=== PATIENT | female | born 1935 | race Two or more races ===

== ENCOUNTER 2018-11-28 16:42 | Inpatient (IN) | payer OTHER, MEDICARE ==
[~2018-11-28] VITALS: Ht 147.3 cm; Wt 43.1 kg
--- NOTE | 2018-11-28 22:30 | NUR ---
BACCARAT DEALERFOREST FIRE MANAGEMENT OFFICER NOTE: PT ADMITTED FROM [facility] ACCOMPANIED BY DAUGHTER. PT IS LETHARGIC BUT AROUSES EASILY TO VERBAL AND TACTILE STIMULI. NO APPARENT DISTRESS NOTED AT THIS TIME. NO FACIAL GRIMACING OR ANY SIGNS OF PAIN NOTED. ON 2LPM NASAL CANNULA, NO SOB NOTED. SATURATING WELL. SINUS RHYTHM HR 73BPM ON TELE MONITOR. PT HAS AN IV ON RIGHT ANTECUBITAL #22 INTACT AND PATENT, FLUSHING WELL. PERTINENT ASSESSMENTS DONE. SKIN ISSUES NOTED, PICTURES TAKEN AND PLACED ON CHART. PER DAUGHTER, SHE WILL BRING THE MEDICATION LIST TOMORROW, SHELDON PHAM, REMY MADE AWARE. KEPT CLEAN, DRY AND COMFORTABLE. SAFETY AND FALL PRECAUTIONS OBSERVED AND MAINTAINED. WILL CONTINUE TO MONITOR PT.
[2018-11-28 23:19] VITALS: BP 148/66
[2018-11-28] MEDS ORDERED: HYDROCODONE/APAP 5/325MG 1 EACH TABLET PO PRN (23:30)
[2018-11-28] MEDS ORDERED: Z GUARD REMEDY 2 OZ OINT TP PRN (23:30)
[2018-11-28] MEDS ORDERED: ZOLPIDEM TARTRATE 5 MG TABLET PO PRN (23:30)
[2018-11-28] MEDS ORDERED: ONDANSETRON HCL/PF 4 MG/2 ML VIAL IVP PRN (23:30)
[2018-11-28] MEDS ORDERED: ACETAMINOPHEN 325 MG TABLET PO PRN (23:30)
[2018-11-28] MEDS ORDERED: MAGNESIUM HYDROXIDE 30 ML UDC PO PRN (23:30)
[2018-11-29] VITALS (21 sets, daily range): BP systolic 102–142; BP diastolic 42–78
[2018-11-29] MEDS: IV NS 0.9% 1,000 ML IV PRN ×2 (00:22→11:05)
[2018-11-29 01:09] LABS: BASOPHILS % (AUTO) 0.5 % (0.0-2.0); EOSINOPHILS % (AUTO) 0.1 % (0.0-6.0); HEMATOCRIT 23 % (33-45); HEMOGLOBIN 7.5 g/dL (11.5-14.8); LYMPHOCYTES # (AUTO) 0.8 /CMM (0.8-4.8); LYMPHOCYTES % (AUTO) 14.6 % (20.0-44.0); MEAN CORPUSCULAR HGB CONC 33 g/dl (31.0-36.0); MEAN CORPUSCULAR VOLUME 103 fL (82-100); MONOCYTES # (AUTO) 0.2 /CMM (0.1-1.30); MONOCYTES % (AUTO) 3.2 % (2.0-12.0); NEUTROPHILS # (AUTO) 4.3 /CMM (1.8-8.9); NEUTROPHILS % (AUTO) 81.6 % (43.0-81.0); RED BLOOD CELL COUNT(AUTO) 2.23 MIL/uL (4.0-5.2); WHITE BLOOD COUNT (AUTO) 5.2 K/uL (4.3-11.0)
[2018-11-29 01:12] LABS: PLATELET COUNT (AUTO) 8 /CMM (150-450)
[2018-11-29 01:31] LABS: LYMPHOCYTES % (MANUAL) 12 % (16-48); MONOCYTES % (MANUAL) 3 % (0-11.0); NEUTROPHILS % (MANUAL) 85 (42-76)
--- NOTE | 2018-11-29 05:20 | NUR ---
FOREST ECOLOGY PROFESSOR NOTE: CALLED LAB TO FOLLOW UP REGARDING PATIENT'S PLATELET ORDER, PER LAB PLATELET STILL NOT AVAILABLE.
--- NOTE | 2018-11-29 06:15 | NUR ---
TAILOR FITTER NOTE: ATTEMPTED IV INSERTION 4X BUT COULDN'T GET A LINE. ENDORSED FROM [place] PT IS REALLY A HARD STICK. SHELDON PHAM NP MADE AWARE AND ORDERED MIDLINE INSERTION.
--- NOTE | 2018-11-29 06:38 | NUR ---
TIRE GROOVER NOTE: NO CHANGES NOTED THROUGHOUT THE SHIFT. 1 BAG OF PLATELET GIVEN WITH NO SIGNS/SYMPTOMS OF ADVERSE REACTION NOTED. PT HAS AN ORDER FOR UA BUT UNABLE TO GET ENOUGH URINE SAMPLE THROUGH STRAIGHT CATH. SHELDON PHAM NOTIFIED. SINUS RHYHTM ON TELE MONITOR HR 85BPM/. KEPT CLEAN, DRY AND COMFORTABLE. SAFETY AND FALL PRECAUTIONS OBSERVED AND MAINTAINED. WILL ENDORSE TO DAY SHIFT RN FOR CONTINUITY OF CARE.
--- NOTE | 2018-11-29 07:20 | NUR ---
SUPERVISOR FUNCTIONAL TESTING NOTES PATIENT IN BED EYES CLOSED, EASY TO AROUSE,RESPOND TO VERBAL AND TACTILE STIMULI. NO ACUTE DISTRESS NOTED. BREATHING UNLABORED. IV ACCESS PATENT AND INTACT, NO REDNESS OR SWELLING NOTED. SAFETY MEASURES IN PLACE. CALL LIGHT WITHIN REACH. WILL CONTINUE TO MONITOR ACCORDINGLY.
--- NOTE | 2018-11-29 10:00 | NUR ---
GLASSIE NOTES CALLED DAUGHTER BOBO TO FOLLOW UP MEDICATIONS SHE HAS TO BRING TO THE TODAY, NO ANSWER. AWAITING FOR CALL BACK.
[2018-11-29] MEDS: CEFTRIAXONE 1 G in IV D5W 50 ML IV SCH (12:00)
--- NOTE | 2018-11-29 12:14 | NUR ---
BLENDER HELPER NOTES SEEN AND EVALUATED BY REMY MCGILL WITH NEW ORDERS MADE, NOTED AND CARRIED OUT. REMY MCGILL AWARE MEDICATION RECONCILIATION NOT DONE YET DUE TO DAUGHTER BOBO TO BRING MEDICATION LIST TODAY. WILL CONTINUE TO FOLLOW UP.
--- NOTE | 2018-11-29 13:00 | NUR ---
AUTOMOTIVE WELDER NOTES CALLED DAUGHTER AGAIN TO FOLLOW UP MEDICATION LIST, NO ANSWER YET. WILL CONTINUE TO FOLLOW UP.
[2018-11-29 16:14] LABS: BASOPHILS % (AUTO) 0.1 % (0.0-2.0); EOSINOPHILS % (AUTO) 0.1 % (0.0-6.0); HEMATOCRIT 21 % (33-45); LYMPHOCYTES # (AUTO) 0.7 /CMM (0.8-4.8); LYMPHOCYTES % (AUTO) 14.6 % (20.0-44.0); MEAN CORPUSCULAR HGB CONC 32 g/dl (31.0-36.0); MEAN CORPUSCULAR VOLUME 104 fL (82-100); MONOCYTES # (AUTO) 0.2 /CMM (0.1-1.30); MONOCYTES % (AUTO) 3.3 % (2.0-12.0); NEUTROPHILS # (AUTO) 3.9 /CMM (1.8-8.9); NEUTROPHILS % (AUTO) 81.9 % (43.0-81.0); RED BLOOD CELL COUNT(AUTO) 2.06 MIL/uL (4.0-5.2); WHITE BLOOD COUNT (AUTO) 4.7 K/uL (4.3-11.0)
[2018-11-29 16:19] LABS: HEMOGLOBIN 6.9 g/dL (11.5-14.8); PLATELET COUNT (AUTO) 8 /CMM (150-450)
[2018-11-29 16:22] LABS: CALCIUM, SERUM 7.5 mg/dL (8.5-10.1); CARBON DIOXIDE 26 mmol/L (21-32); CREATININE 0.7 mg/dL (0.6-1.3); GLUCOSE 99 mg/dL (74-106); MAGNESIUM 2.3 mg/dL (1.8-2.4); PHOSPHORUS 2.4 mg/dL (2.5-4.9); UREA NITROGEN, BLOOD 54 mg/dL (7-18)
[2018-11-29 16:25] LABS: POTASSIUM 2.4 mmol/L (3.5-5.1); SODIUM SERUM 169 mmol/L (136-145)
[2018-11-29 16:26] LABS: CHLORIDE 133 mmol/L (98-107); CHOLESTEROL 48 mg/dL (<200); LDL 29 mg/dL (0-99); TRIGLYCERIDES 78 mg/dL (30-150)
[2018-11-29 16:27] LABS: HDL CHOLESTEROL < 10 mg/dL (40-60)
[2018-11-29 16:40] LABS: BILIRUBIN,DIRECT 1.4 mg/dL (0.0-0.2); TOTAL PROTEIN, SERUM 6.3 g/dL (6.4-8.2)
--- NOTE | 2018-11-29 16:52 | NUR ---
MACHINE ROUGH ROUNDER NOTES RELAYED LABORATORY RESULT TO REMY MCGILL INCLUDING CRITICAL LEVELS WITH NEW ORDERS MADE. NOTED AND CARRIED OUT.
[2018-11-29 16:53] LABS: ALBUMIN 1.2 g/dL (3.4-5.0)
--- NOTE | 2018-11-29 17:18 | NUR ---
RT STAT EKG DONE AND RESULTS REPORTED TO RN AND CHARGE NURSE.
[2018-11-29] MEDS ORDERED: POTASSIUM CHLORIDE 10 MEQ/50 ML PREMIXED IVPB FOR PERIPHERAL LINE IV ONE (17:20)
[2018-11-29] MEDS ORDERED: CALC-7 PO (17:23)
[2018-11-29] MEDS ORDERED: BENA20TA9 PO (17:23)
[2018-11-29] MEDS ORDERED: FOLI1TAB16 PO (17:23)
[2018-11-29] MEDS ORDERED: LEVO25TA9 PO (17:23)
[2018-11-29] MEDS ORDERED: ALEN70TA6 PO (17:23)
--- NOTE | 2018-11-29 17:43 | NUR ---
MACHINE VENEER REPAIRER NOTES EKG RESULTED RELAYED TO REMY MCGILL WITH NEW ORDERS MADE, NOTED AND CARRIED OUT.
[2018-11-29 17:45] LABS: BAND % (MANUAL) 18 % (0.0-5.0); LYMPHOCYTES % (MANUAL) 17 % (16-48); MONOCYTES % (MANUAL) 5 % (0-11.0); NEUTROPHILS % (MANUAL) 60 (42-76)
--- NOTE | 2018-11-29 17:45 | NUR ---
ADMINISTRATOR NOTES PATIENT TRANSPORTED TO ICU, NO ACUTE DISTRESS NOTED. BREATHING UNLABORED. PATIENT ALERT AWAKE. PATIENT ON TRANSPORT MONITOR DURING TRANSFER. DAUGHTER AT BEDSIDE AWARE OF TRANSFER. PATIENT WAS PLACE TO ROOM 260 REPORT GIVEN TO XOCHILT AT BEDSIDE. NO ACUTE DISTRESS NOTED DURING TRANSFER. ALL BELONGINGS WAS BROUGHT WITH THE PATIENT.
[2018-11-29] MEDS ORDERED: IV NS 0.9% 1,000 ML IV ONE (18:00)
[2018-11-29] MEDS ORDERED: IV NS 0.9% 1,000 ML BAG IV PRN (18:00)
[2018-11-29 18:11] LABS: D-DIMER 9.1 mg/L(FEU (0.17-0.50)
[2018-11-29] MEDS: DIGOXIN INJ 0.5 MG/2 ML AMPUL IV SCH (18:22)
[2018-11-29] MEDS: POTASSIUM CL. PREMIX PERIPHER. 50 ML IV SCH ×4 (18:36→22:19)
[2018-11-29] MEDS ORDERED: PHYTONADIONE INJ 10 MG/1 ML AMPUL SQ ONE (19:00)
--- NOTE | 2018-11-29 19:15 | NUR ---
ICU/RN. RECEIVED PT AWAKE,ALERT W/ DAUGHTER AT BEDSIDE.AWAITING FOR MIDLINE RN .Chad-IVANA RN AT BEDSIDE TO INSERT MIDLINE VIA RT UPPER ARM G#18.
[2018-11-29] MEDS: IV 1/2NS 1000 ML 1,000 ML IV PRN (19:56)
[2018-11-29] MEDS ORDERED: IV NS 0.9% 250 ML IV PRN (20:00)
[2018-11-29 20:01] LABS: THYROID STIMULATING HORMONE 9.17 uIU/mL (0.358-3.74)
--- NOTE | 2018-11-29 20:33 | NUR ---
ICU/RN I UNIT PLATELET HUNG TO BE FOLLOWED W/ I UNIT PRBS.
[2018-11-29] MEDS ORDERED: DIGOXIN INJ 0.5 MG/2 ML AMPUL IV ONE (23:59)
[2018-11-30] VITALS (33 sets, daily range): BP systolic 116–149; BP diastolic 51–80
[2018-11-30] MEDS: DIGOXIN INJ 0.5 MG/2 ML AMPUL IV SCH ×2 (00:41→05:46)
--- NOTE | 2018-11-30 00:45 | NUR ---
ICU/RN BLOOD PRODUCTS TRANSFUSED WITHOUT REACTION.
[2018-11-30 04:24] LABS: BASOPHILS % (AUTO) 0.2 % (0.0-2.0); HEMATOCRIT 27 % (33-45); LYMPHOCYTES # (AUTO) 0.7 /CMM (0.8-4.8); LYMPHOCYTES % (AUTO) 14.2 % (20.0-44.0); MEAN CORPUSCULAR HGB CONC 33 g/dl (31.0-36.0); MEAN CORPUSCULAR VOLUME 100 fL (82-100); MONOCYTES # (AUTO) 0.2 /CMM (0.1-1.30); MONOCYTES % (AUTO) 3.6 % (2.0-12.0); NEUTROPHILS # (AUTO) 4.1 /CMM (1.8-8.9); RED BLOOD CELL COUNT(AUTO) 2.72 MIL/uL (4.0-5.2); WHITE BLOOD COUNT (AUTO) 4.9 K/uL (4.3-11.0)
[2018-11-30 04:37] LABS: APPEARANCE,URINE CLEAR (CLEAR); BILIRUBIN,URINE 1+ (NEGATIVE); BLOOD, URINE 3+ Ery/uL (NEGATIVE); COLOR,URINE YELLOW (YELLOW); KETONES,URINE NEGATIVE (NEGATIVE); LEUKOCYTE ESTERASE ,URINE TRACE (NEGATIVE); NITRITE, URINE POSITIVE (NEGATIVE); PH,URINE 5.5 (5.0-8.0); PROTEIN,URINE 2+ mg/dl (NEGATIVE); UGLUCOSE NEGATIVE (NEGATIVE)
[2018-11-30 04:40] LABS: OSMOLALITY,URINE 515 mOS/kg (340-1090); URINE SODIUM, RANDOM 24 mmol/l (40-220)
[2018-11-30 04:42] LABS: ALANINE AMINOTRANSFERASE 6 U/L (12-78); ALKALINE PHOSPHATASE 59 U/L (46-116); ASPARTATE AMINOTRANSFERASE 20 U/L (15-37); BILIRUBIN,DIRECT 1.8 mg/dL (0.0-0.2); BILIRUBIN,TOTAL 2.7 mg/dL (0.2-1.0); CALCIUM, SERUM 7.4 mg/dL (8.5-10.1); CARBON DIOXIDE 23 mmol/L (21-32); CREATININE 0.6 mg/dL (0.6-1.3); GLUCOSE 86 mg/dL (74-106); POTASSIUM 3.1 mmol/L (3.5-5.1); TOTAL PROTEIN, SERUM 6.3 g/dL (6.4-8.2); UREA NITROGEN, BLOOD 51 mg/dL (7-18)
[2018-11-30 04:55] LABS: ALBUMIN 1.3 g/dL (3.4-5.0); CHLORIDE 133 mmol/L (98-107); SODIUM SERUM 167 mmol/L (136-145)
[2018-11-30 04:58] LABS: PLATELET COUNT (AUTO) 9 /CMM (150-450)
[2018-11-30 05:11] LABS: LYMPHOCYTES % (MANUAL) 10 % (16-48); MONOCYTES % (MANUAL) 2 % (0-11.0); NEUTROPHILS % (MANUAL) 88 (42-76)
[2018-11-30 05:15] LABS: BACTERIA,URINE Moderate /HPF (None Seen); RBC,URINE 51-80 /HPF (0-2); SQUAMOUS EPITHELIAL CELL,UR Few /HPF (None Seen)
--- NOTE | 2018-11-30 05:50 | NUR ---
ICU/RN DR. LAO IN.CONDITION REPORT GIVEN AND MADE AWARE OF ABNORMAL LABS.
[2018-11-30] MEDS ORDERED: DIGOXIN INJ 0.5 MG/2 ML AMPUL IV ONE (06:00)
--- NOTE | 2018-11-30 06:00 | NUR ---
ICU/RN VITAL SIGNS STABLE.MONITOR SHOWS SR. URINE OUTPUT [id number]
[2018-11-30] MEDS: IV 1/2NS 1000 ML 1,000 ML IV PRN (06:17)
--- NOTE | 2018-11-30 06:30 | NUR ---
ICU/RN VITAL SIGNS STABLE.MONITOR SHOWS SR.
[2018-11-30] MEDS: POTASSIUM CL. PREMIX PERIPHER. 50 ML IV SCH ×4 (07:30→10:46)
[2018-11-30] MEDS: LEVOTHYROXINE SODIUM 25 MCG TABLET PO SCH (07:30)
[2018-11-30] MEDS: FOLIC ACID 1 MG TABLET PO SCH (08:02)
[2018-11-30] MEDS: CALCIUM CARB 250MG /VITAMIN D 1 UDTAB PO SCH ×2 (08:02→16:58)
[2018-11-30 08:09] LABS: IMMUNOGLOBULIN A, SERUM 521 mg/dL (64-422); IMMUNOGLOBULIN G, SERUM 2713 mg/dL (700-1600); IMMUNOGLOBULIN M, SERUM 40 mg/dL (26-217)
--- NOTE | 2018-11-30 08:26 | NUR ---
WOUND CARE CONSULT: PT PRESENTS WITH SACRAL SCARRING, BRUISING TO ARMS WITH VERY FRAGILE SKIN WITH SKIN TEAR TO LEFT ARM, PRESENT ON ADMISSION. BRUISING NOTED TO BUTTOCKS AND HIPS. CURRENT PLATELET COUNT IS 8. PT ON NEIL ISOFLEX LOW AIRLOSS BED. ALL SKIN PROTECTION RECOMMENDATIONS DISCUSSED WITH NURSING STAFF. CURRENT FIFI SCORE IS 8. WILL SEE PRN. RODRIGUEZ IN AGREEMENT WITH PLAN OF CARE. Addendum: 11/30/18 at 0828 by JIM DAY WNDNU Amended: Links added.
[2018-11-30] MEDS ORDERED: MINERAL OIL/PETROLATUM,WHITE 120 GM JAR TP PRN (08:30)
--- NOTE | 2018-11-30 09:32 | NUR ---
received pt from production shift supervisor, alert, follows simple commands, Irish speaker, SR, RA, f/c very low output, one BM, v/s stable, no pain, pt turned and repositioned.
[2018-11-30 09:51] LABS: D-DIMER 10.19 mg/L(FEU (0.17-0.50)
[2018-11-30 10:19] LABS: *SPE A/G RATIO 0.4 (0.7-1.7); *SPE ALBUMIN 1.6 g/dL (2.9-4.4); *SPE ALPHA-1-GLOBULIN 0.4 g/dL (0.0-0.4); *SPE ALPHA-2-GLOBULIN 0.4 g/dL (0.4-1.0); *SPE BETA GLOBULIN 0.7 g/dL (0.7-1.3); *SPE GLOBULIN, TOTAL 4.3 g/dL (2.2-3.9); *SPE M-SPIKE Not Observed g/dL (Not Observed); *SPEGAMMA GLOBULIN 2.8 g/dL (0.4-1.8)
[2018-11-30] MEDS: CEFTRIAXONE 1 G in IV D5W 50 ML IV SCH (10:56)
[2018-11-30] MEDS: IV D5W 1,000 ML IV PRN (12:21)
[2018-11-30 13:12] LABS: CALCIUM, SERUM 7.4 mg/dL (8.5-10.1); CARBON DIOXIDE 23 mmol/L (21-32); CREATININE 0.7 mg/dL (0.6-1.3); GLUCOSE 115 mg/dL (74-106); POTASSIUM 3.7 mmol/L (3.5-5.1); UREA NITROGEN, BLOOD 50 mg/dL (7-18)
[2018-11-30 13:27] LABS: CHLORIDE 128 mmol/L (98-107); SODIUM SERUM 159 mmol/L (136-145)
--- NOTE | 2018-11-30 16:07 | NUR ---
pt is resting in the bed, receiving platelets, v/s stable, no pain, pt cleaned and changed, daughter at the bedside.
[2018-11-30 16:08] LABS: OCCULT BLOOD STOOL NEGATIVE (NEGATIVE)
--- NOTE | 2018-11-30 17:45 | NUR ---
RN NOTES RECEIVED PATIENT FROM ICU WITH, NO ACUTE DISTRESS AT THIS TIME. RESPIRATIONS EVEN AND UNLABORED, DENIES ANY PAIN OR DISCOMFORT AT THIS TIME. DAUGHTER AT BED SIDE IV ACCESS PATENT AND INTACT NO REDNESS OR INFILTRATION NOTED. KEPT CLEAN DRY AND COMFORTABLE, CALL LIGHT WITHIN EASY REACH, WILL ENDORSE TO ONCOMING RN FOR CONTINUITY OF CARE
--- NOTE | 2018-11-30 17:53 | NUR ---
pt transferred to [facility], ACLS followed, v/s stable, no pain.
[2018-11-30] MEDS: PANTOPRAZOLE 40 MG VIAL IV SCH (19:04)
--- NOTE | 2018-11-30 19:54 | NUR ---
TD RN NOTE: RECEIVED PT ON BED ASLEEP BUT AROUSES EASILY TO VERBAL AND TACTILE STIMULI. DAUGHTER AT BEDSIDE. NO APPARENT DISTRESS NOTED. NO FACIAL GRIMACING OR ANY SIGNS OF PAIN NOTED. ON 2LPM NASAL CANNULA, NO SOB NOTED. SINUS RHYTHM ON TELE MONITOR HR 75BPM. RIGHT UPPER ARM MIDLINE INTACT AND PATENT, IVF INFUSING WELL. KEPT CLEAN, DRY AND COMFORTABLE. SAFETY AND FALL PRECAUTIONS OBSERVED AND MAINTAINED. WILL CONTINUE TO MONITOR PT.
[2018-11-30 21:01] LABS: CALCIUM, SERUM 7.1 mg/dL (8.5-10.1); CARBON DIOXIDE 24 mmol/L (21-32); CREATININE 0.7 mg/dL (0.6-1.3); GLUCOSE 197 mg/dL (74-106); POTASSIUM 3.2 mmol/L (3.5-5.1); UREA NITROGEN, BLOOD 44 mg/dL (7-18)
[2018-11-30 21:03] LABS: SODIUM SERUM 159 mmol/L (136-145)
[2018-11-30 21:04] LABS: CHLORIDE 129 mmol/L (98-107)
[2018-12-01] VITALS: BP 135/60
[2018-12-01] MEDS: IV D5W 1,000 ML IV PRN ×2 (00:33→18:01)
[2018-12-01] MEDS ORDERED: POTASSIUM CHLORIDE 10 MEQ/50 ML PREMIXED IVPB FOR PERIPHERAL LINE IV ONE (01:00)
[2018-12-01] MEDS ORDERED: POTASSIUM CL. PREMIX PERIPHER. 200 ML ONE (01:02)
[2018-12-01] MEDS: Potassium Chloride 10 MEQ in IV D5W 50 ML IV SCH ×4 (01:05→04:16)
[2018-12-01 04:00] VITALS: BP 132/55
--- NOTE | 2018-12-01 06:38 | NUR ---
TD RN NOTE: NO CHANGES NOTED THROUGHOUT THE SHIFT. NO APPARENT DISTRESS NOTED. ON ROOM AIR, NO SOB NOTED. SATURATING WELL. ON TELE MONITOR SINUS RHYTHM HR 86BPM. HERNANDEZ CATH INTACT AND PATENT, DRAINED 100ML OF URINE OUTPUT. RIGHT UPPER ARM MIDLINE INTACT AND PATENT, IVF INFUSING WELL. KEPT CLEAN, DRY AND COMFORTABLE. SAFETY AND FALL PRECAUTIONS OBSERVED AND MAINTAINED. WILL ENDORSE TO DAY SHIFT RN FOR CONTINUITY OF CARE.
[2018-12-01 07:28] LABS: HEMATOCRIT 28 % (33-45); HEMOGLOBIN 9.2 g/dL (11.5-14.8); MEAN CORPUSCULAR HGB CONC 33 g/dl (31.0-36.0); MEAN CORPUSCULAR VOLUME 102 fL (82-100); RED BLOOD CELL COUNT(AUTO) 2.75 MIL/uL (4.0-5.2); WHITE BLOOD COUNT (AUTO) 6.2 K/uL (4.3-11.0)
[2018-12-01 07:34] LABS: PLATELET COUNT (AUTO) 12 /CMM (150-450)
[2018-12-01 07:44] LABS: ALANINE AMINOTRANSFERASE < 6 U/L (12-78); ALKALINE PHOSPHATASE 57 U/L (46-116); ASPARTATE AMINOTRANSFERASE 15 U/L (15-37); BILIRUBIN,TOTAL 2.9 mg/dL (0.2-1.0); CALCIUM, SERUM 7.3 mg/dL (8.5-10.1); CARBON DIOXIDE 22 mmol/L (21-32); CREATININE 0.6 mg/dL (0.6-1.3); GLUCOSE 143 mg/dL (74-106); PHOSPHORUS 2.4 mg/dL (2.5-4.9); POTASSIUM 3.9 mmol/L (3.5-5.1); TOTAL PROTEIN, SERUM 5.9 g/dL (6.4-8.2); UREA NITROGEN, BLOOD 42 mg/dL (7-18)
[2018-12-01 07:50] LABS: ALBUMIN 1.1 g/dL (3.4-5.0); CHLORIDE 128 mmol/L (98-107); SODIUM SERUM 157 mmol/L (136-145)
[2018-12-01 08:00] VITALS: BP 131/61
--- NOTE | 2018-12-01 08:00 | NUR ---
RN NOTES RECEIVED PT ON BED ASLEEP BUT AROUSES EASILY TO VERBAL AND TACTILE STIMULI. NON VERBAL, NODS TO ANSWER YES/NO QUESTIONS . ON ROOM AIR. NO SHORTNESS BREATH NOTED.SATING WELL. NO COMPLAINTS OF PAIN AT THIS TIME. SINUS RHYTHM ON TELE MONITOR HR 80'SBPM. RIGHT UPPER ARM MIDLINE INTACT AND PATENT, DRESSING C/D/I. IVF INFUSING WELL ORDERED. SAFETY MEASURES OBSERVED AND MAINTAINED. SR2 UP, BED LOW AND LOCKED POSITION. CALL LIGHT PLACED WITHIN REACH. WILL CONTINUE TO MONITOR.
[2018-12-01 08:18] LABS: LYMPHOCYTES % (MANUAL) 6 % (16-48); MONOCYTES % (MANUAL) 3 % (0-11.0); NEUTROPHILS % (MANUAL) 91 (42-76)
--- NOTE | 2018-12-01 08:30 | NUR ---
RN NOTES PATIENT REFUSED TO EAT BREAKFAST. OFFERED TWICE BY THE DRY KILN OPERATOR AND RN.
[2018-12-01] MEDS: CALCIUM CARB 250MG /VITAMIN D 1 UDTAB PO SCH ×2 (09:24→17:35)
[2018-12-01] MEDS: ENSURE ENLIVE 237 ML LIQUID (VANILLA) PO SCH ×3 (09:24→17:34)
[2018-12-01] MEDS: FOLIC ACID 1 MG TABLET PO SCH (09:24)
[2018-12-01] MEDS: LEVOTHYROXINE SODIUM 25 MCG TABLET PO SCH (09:24)
[2018-12-01] MEDS: CEFTRIAXONE 1 G in IV D5W 50 ML IV SCH (11:16)
[2018-12-01] MEDS ORDERED: K PHOS NEUTRAL 250 MG TABLET PO ONE (11:30)
[2018-12-01 15:36] LABS: CALCIUM, SERUM 7.3 mg/dL (8.5-10.1); CARBON DIOXIDE 22 mmol/L (21-32); CREATININE 0.7 mg/dL (0.6-1.3); GLUCOSE 157 mg/dL (74-106); POTASSIUM 3.7 mmol/L (3.5-5.1); SODIUM SERUM 155 mmol/L (136-145); UREA NITROGEN, BLOOD 41 mg/dL (7-18)
[2018-12-01 15:43] LABS: CHLORIDE 126 mmol/L (98-107)
[2018-12-01 16:00] VITALS: BP 130/80
[2018-12-01 16:08] VITALS: BP 130/80
[2018-12-01] MEDS: PANTOPRAZOLE 40 MG VIAL IV SCH (17:34)
--- NOTE | 2018-12-01 19:35 | NUR ---
RN NOTES ENDORSED PATIENT FOR CONTINUITY OF CARE. NO ACUTE CHANGES WITHIN THE SHIFT. ALL NURSING NEEDS ATTENDED AND MET. SAFETY MEASURES IN PLACE AT ALL TIME. CALL LIGHT WITHIN REACH
[2018-12-01 20:00] VITALS: BP 109/83
--- NOTE | 2018-12-01 20:00 | NUR ---
RN NOTES RECEIVED BEDSIDE REPORT FROM AM SHIFT RN. PT ON BED ASLEEP BUT AROUSES EASILY TO VERBAL AND TACTILE STIMULI WITH FAMILY MEMBERS AT THE BEDSIDE, PATIENT IS NON VERBAL, NODS TO ANSWER YES/NO QUESTIONS . ON ROOM AIR. NO SHORTNESS OF BREATH NOTED.SATING WELL ON RA . NO COMPLAINTS OF PAIN AT THIS TIME. RIGHT UPPER ARM MIDLINE INTACT AND PATENT, DRESSING C/D/I. IVF INFUSING WELL ORDERED. RIGHT FOOT 22G IV LINE IS PATIENT AND INTACT, SL. SAFETY MEASURES OBSERVED AND MAINTAINED. SRX2 UP, BED LOW AND LOCKED POSITION. CALL LIGHT PLACED WITHIN REACH. WILL CONTINUE TO MONITOR PATIENT CLOSELY.
[2018-12-02] VITALS (9 sets, daily range): BP systolic 120–143; BP diastolic 58–76
[2018-12-02] MEDS: IV D5W 1,000 ML IV PRN ×2 (05:37→18:10)
--- NOTE | 2018-12-02 07:40 | NUR ---
MS RN OPENING NOTE RECEIVED PT IN BED, SEMI FOWLERS, RESTING WITH EYES CLOSED. NO ACUTE DISTRESS NOTED AT THIS TIME. BREATHING IS EVEN AND UNLABORED ON ROOM AIR. RIGHT UPPER ARM MIDLINE IS INFUSING D5W @ 100ML/HR WITHOUT REDNESS OR SWELLING. HERNANDEZ CATHETER NOTED TO BE DRAINING DARK, KARINE URINE. ASPIRATION AND BLEEDING PRECAUTIONS MAINTAINED. BED IS LOCKED AND IN LOWEST POSITION, SIDE RAILS UP X2, BED ALARM ON, CALL LIGHT AND POSSESSIONS WITHIN REACH.
[2018-12-02] MEDS: ENSURE ENLIVE 237 ML LIQUID (VANILLA) PO SCH ×3 (08:08→16:49)
[2018-12-02] MEDS: LEVOTHYROXINE SODIUM 25 MCG TABLET PO SCH (08:08)
[2018-12-02] MEDS: FOLIC ACID 1 MG TABLET PO SCH (08:08)
[2018-12-02] MEDS: CALCIUM CARB 250MG /VITAMIN D 1 UDTAB PO SCH ×3 (08:08→17:00)
[2018-12-02 08:35] LABS: BASOPHILS % (AUTO) 0.5 % (0.0-2.0); EOSINOPHILS % (AUTO) 0.4 % (0.0-6.0); HEMATOCRIT 26 % (33-45); HEMOGLOBIN 8.7 g/dL (11.5-14.8); LYMPHOCYTES # (AUTO) 0.9 /CMM (0.8-4.8); LYMPHOCYTES % (AUTO) 15.6 % (20.0-44.0); MEAN CORPUSCULAR HGB CONC 33 g/dl (31.0-36.0); MEAN CORPUSCULAR VOLUME 102 fL (82-100); MONOCYTES # (AUTO) 0.2 /CMM (0.1-1.30); MONOCYTES % (AUTO) 3.7 % (2.0-12.0); NEUTROPHILS # (AUTO) 4.7 /CMM (1.8-8.9); NEUTROPHILS % (AUTO) 79.8 % (43.0-81.0); RED BLOOD CELL COUNT(AUTO) 2.58 MIL/uL (4.0-5.2); WHITE BLOOD COUNT (AUTO) 5.8 K/uL (4.3-11.0)
[2018-12-02 08:39] LABS: PLATELET COUNT (AUTO) 6 /CMM (150-450)
[2018-12-02 08:49] LABS: CALCIUM, SERUM 7.3 mg/dL (8.5-10.1); CARBON DIOXIDE 22 mmol/L (21-32); CHLORIDE 122 mmol/L (98-107); CREATININE 0.6 mg/dL (0.6-1.3); GLUCOSE 130 mg/dL (74-106); PHOSPHORUS 2.8 mg/dL (2.5-4.9); POTASSIUM 3.6 mmol/L (3.5-5.1); SODIUM SERUM 152 mmol/L (136-145); UREA NITROGEN, BLOOD 35 mg/dL (7-18)
[2018-12-02 08:52] LABS: BILIRUBIN,DIRECT 1.7 mg/dL (0.0-0.2); BILIRUBIN,TOTAL 2.4 mg/dL (0.2-1.0); TOTAL PROTEIN, SERUM 5.7 g/dL (6.4-8.2)
[2018-12-02 09:41] LABS: LYMPHOCYTES % (MANUAL) 9 % (16-48); MONOCYTES % (MANUAL) 2 % (0-11.0); NEUTROPHILS % (MANUAL) 89 (42-76)
--- NOTE | 2018-12-02 10:35 | NUR ---
MS RN NOTE PER LAB THEY WILL COME DRAW TYPE AND SCREEN SHORTLY
--- NOTE | 2018-12-02 10:53 | NUR ---
MS RN NOTE SPOKE WITH DAUGHTER OMAYRA NAVARRO OVER THE PHONE AT [phone]. PER OMAYRA, THE PT DOES NOT CURRENTLY HAVE A POLST OF ADVANCED DIRECTIVE STATING THE PT WISHES TO DNR. THE DRN/DNI STATUS IS PER CONVERSATION WITH DR AT [place], PER OMAYRA SHE STILL WISHES THE PT TO BE DNR/DNI AT THIS TIME.
[2018-12-02] MEDS: CEFTRIAXONE 1 G in IV D5W 50 ML IV SCH (11:06)
--- NOTE | 2018-12-02 11:57 | NUR ---
MS RN NOTE PER BLOOD BANK THEY WILL CALL ONCE PLATELETS ARE READY FOR SCROLL ASSEMBLER
--- NOTE | 2018-12-02 12:37 | NUR ---
MS RN NOTE INFUSION OF PLATELETS X1 ORDERED BY CARLO MASON NP. INITIATED UTILIZING 2 RN VERIFICATION WITH CHARGE NURSE NASIMA PER PROTOCOL. BEGINNING VS: 120/67, HR: 82, R: 20, T: 98.3, SP02: 100% ON ROOM AIR. WILL CONTINUE TO MONITOR PER PROTOCOL.
--- NOTE | 2018-12-02 12:52 | NUR ---
MS RN NOTE VS OBTAINED PER PROTOCOL. BP: 140/62, HR: 84, R:20, T: 99.5, SP02: 99%. BREATHING IS EVEN AND UNLABORED ON ROOM AIR. NO ACUTE DISTRESS NOTED AT THIS TIME.
--- NOTE | 2018-12-02 13:25 | NUR ---
MS RN NOTE TRANSFUSION OF PLATELETS X1 ORDERED COMPLETED BY CHARGE NURSE NASIMA. VS ARE BP: 125/58, HR: 88, R: 20, T: 98.0, SP02: 99%. NO ACUTE DISTRESS NOTED AT THIS TIME ON ROOM AIR.
[2018-12-02] MEDS ORDERED: PHYTONADIONE 5 MG TABLET PO ONE (13:30)
--- NOTE | 2018-12-02 15:13 | NUR ---
MS RN NOTE PER PHARMACIST THEY WILL REVIEW AND SEND MEPHYTON 5MG PO. AWAITING ARRIVAL.
--- NOTE | 2018-12-02 15:15 | NUR ---
MS RN NOTE PER PHARMACY, THEY NEED CLARIFICATION IF DR. BAXTER STILL WOULD LIKE PT TO RECEIVE MEPHYTON 5MG PO AFTER RECEIVING VIT K 10MG SUBQ ON 11/29.
--- NOTE | 2018-12-02 15:19 | NUR ---
MS RN NOTE CONTACTED DR. BAXTER FOR MEPHYTON MEDICATION CLARIFICATION, AWAITING RESPONSE.
--- NOTE | 2018-12-02 15:30 | NUR ---
MS RN NOTE OVERHEAD PAGED , AWAITING RESPONSE.
--- NOTE | 2018-12-02 15:50 | NUR ---
MS RN NOTE CALLED AND LEFT VOICEMAIL FOR REGARDING MEDICATION CALCIFICATION. AWAITING RESPONSE.
--- NOTE | 2018-12-02 16:13 | NUR ---
MS RN NOTE PER DR. BAXTER DO NOT ADMINISTER MEPHYTON 5 MG PO.
--- NOTE | 2018-12-02 17:00 | NUR ---
MS RN NON ADMIN NOTE CALCIUM VIT D TABLET HELD PER FAMILY REQUEST. FAMILY AT THE BEDSIDE WOULD LIKE TO HOLD MEDICATION AND LET PT SLEEP AT THIS TIME.
--- NOTE | 2018-12-02 18:32 | NUR ---
MS RN CLOSING NOTE PT IN BED, SEMI FOWLERS, RESTING WITH EYES CLOSED AND EASILY AROUSABLE TO VERBAL AND TACTILE STIMULI. NO ACUTE DISTRESS NOTED AT THIS TIME. BREATHING IS EVEN AND UNLABORED ON ROOM AIR. RIGHT UPPER ARM MIDLINE IS INFUSING D5W @ 40ML/HR WITHOUT REDNESS OR SWELLING. HERNANDEZ CATHETER NOTED TO BE DRAINING DARK, KARINE URINE. ADLS AND WOUND TREATMENT PROVIDED ORDERED. PT ASSISTED TO TURN AND REPOSITION Q2H FOR THE DURATION OF THE SHIFT. ASPIRATION AND BLEEDING PRECAUTIONS MAINTAINED. BED IS LOCKED AND IN LOWEST POSITION, SIDE RAILS UP X2, BED ALARM ON, CALL LIGHT AND POSSESSIONS WITHIN REACH. WILL ENDORSE TO SCREW MACHINE OPERATOR NURSE FOR CONTINUITY OF CARE.
[2018-12-03 04:00] VITALS: BP 130/67
--- NOTE | 2018-12-03 07:30 | NUR ---
MS RN Opening Notes Patient asleep, resting in bed. Semi-Fowlers position. Alert and oriented x1, able to make needs known but speech is uncomprehensible. No complaints of pain at this time. Respirations even and unlabored on room air, no acute distress noted. Midline IV to the right arm, intact, patent and infusing fluids. Sevilla catheter in place, with some mild leaking noted, patent and draining nancy urine. Aspiration and bleeding precautions maintained. Updated patient on current plan of care and safety measures. Safety and fall precautions in place: bed in lowest and locked position, side rails up x2, bed alarm on, call light and personal possessions within reach. Will continue to monitor and intervene as needed.
[2018-12-03 07:54] LABS: BASOPHILS % (AUTO) 0.4 % (0.0-2.0); EOSINOPHILS % (AUTO) 0.4 % (0.0-6.0); HEMATOCRIT 28 % (33-45); HEMOGLOBIN 9.1 g/dL (11.5-14.8); LYMPHOCYTES # (AUTO) 0.8 /CMM (0.8-4.8); LYMPHOCYTES % (AUTO) 26.7 % (20.0-44.0); MEAN CORPUSCULAR HGB CONC 33 g/dl (31.0-36.0); MEAN CORPUSCULAR VOLUME 102 fL (82-100); MONOCYTES # (AUTO) 0.1 /CMM (0.1-1.30); MONOCYTES % (AUTO) 4.9 % (2.0-12.0); NEUTROPHILS % (AUTO) 67.6 % (43.0-81.0); RED BLOOD CELL COUNT(AUTO) 2.72 MIL/uL (4.0-5.2)
[2018-12-03 07:57] LABS: CALCIUM, SERUM 7.6 mg/dL (8.5-10.1); CARBON DIOXIDE 24 mmol/L (21-32); CHLORIDE 118 mmol/L (98-107); CREATININE 0.5 mg/dL (0.6-1.3); GLUCOSE 80 mg/dL (74-106); POTASSIUM 3.2 mmol/L (3.5-5.1); SODIUM SERUM 149 mmol/L (136-145); UREA NITROGEN, BLOOD 25 mg/dL (7-18)
[2018-12-03 08:00] VITALS: BP 131/63
[2018-12-03 08:04] LABS: PLATELET COUNT (AUTO) 8 /CMM (150-450)
[2018-12-03 09:15] LABS: LYMPHOCYTES % (MANUAL) 17 % (16-48); MONOCYTES % (MANUAL) 2 % (0-11.0); NEUTROPHILS % (MANUAL) 81 (42-76)
[2018-12-03] MEDS: CALCIUM CARB 250MG /VITAMIN D 1 UDTAB PO SCH ×2 (10:02→16:54)
[2018-12-03] MEDS: FOLIC ACID 1 MG TABLET PO SCH (10:03)
[2018-12-03] MEDS: ENSURE ENLIVE 237 ML LIQUID (VANILLA) PO SCH ×3 (10:03→16:54)
[2018-12-03] MEDS: LEVOTHYROXINE SODIUM 25 MCG TABLET PO SCH (10:03)
[2018-12-03] MEDS: PANTOPRAZOLE 40 MG TABLET.DR PO SCH (10:03)
[2018-12-03] MEDS ORDERED: POTASSIUM CHLORIDE 20 MEQ TAB.PRT.SR PO SCH (11:30)
[2018-12-03] MEDS ORDERED: POTASSIUM CHLORIDE 20 MEQ POWDER PACKET PO SCH (11:36)
[2018-12-03] MEDS: CEFTRIAXONE 1 G in IV D5W 50 ML IV SCH (11:52)
[2018-12-03 16:00] VITALS: BP 141/57
[2018-12-03] MEDS: IV D5W 1,000 ML IV PRN (17:47)
--- NOTE | 2018-12-03 18:56 | NUR ---
MS RN Closing Notes Patient asleep, resting in bed. Semi-Fowlers position. Alert and oriented x1, able to make needs known but speech is uncomprehensible. No complaints of pain at this time. Respirations even and unlabored on room air, no acute distress noted. Midline IV to the right arm, intact, patent and infusing D5W at 70 ml/hr. Sevilla catheter in place, with some mild leaking noted, patent and draining nancy urine. Minimal output, MD aware. Poor oral intake this shift. Wound care rendered as ordered. All due medications given. Aspiration and bleeding precautions maintained. Updated patient on current plan of care and safety measures. Safety and fall precautions in place: bed in lowest and locked position, side rails up x2, bed alarm on, call light and personal possessions within reach. Will endorse to high lighter RN for continuity of care.
--- NOTE | 2018-12-03 19:05 | NUR ---
RN MS OPENING NOTES RECEIVED PATIENT IN BED , ALERT AND ORIENTED X1, SPEECH NOTED CLEAR BUT SLOW, ABLE TO MAKE SIMPLE NEEDS KNOWN. RESPIRATIONS EVEN AND UNLABORED WITH EQUAL RISE AND FALL OF CHEST, APPEARS TO BE COMFORTABLE AND FREE OF PAIN, DENIES PAIN AT THIS TIME, HERNANDEZ CATHETER INTACT AND DRAINING, URINE YELLOW NOTED WITH LEAKING, HAS HX OF F/C LEAKING , MD AWARE. F/C IN PROPER LOCATION AND PROPERLY SECURED.PATIENT REPOSITIONED TO OFFLOAD AFFECTED SACRAL AREA, MEPILEX INTACT, BOTH HEELS OFFLOADED FOR SKIN MANAGEMENT AND PREVENTION, ASPIRATIONS AND BLEEDING PRECAUTIONS RENDERED. PETRA MIDLINE IN PLACE, INTACT AND PATENT , NO REDNESS NO INFILTRATION PRESENT, IVF D5W RUNNING ORDERED,ORIENTED TO STAFF AND CALL LIGHT AND KEPT WITHIN REACH, SAFETY PRECAUTIONS IN PLACE, LOW BED AND LOCKED, BED ALARM IN PLACE, ALL NEEDS ATTENDED AT THIS TIME, WILL CONTINUE TO MONITOR AND ADDRESS NEEDS.
[2018-12-03 20:00] VITALS: BP 132/60
[2018-12-03 20:33] VITALS: BP 133/57
[2018-12-03 20:48] VITALS: BP 123/50
[2018-12-04 04:00] VITALS: BP 127/55
--- NOTE | 2018-12-04 06:32 | NUR ---
RN MS CLOSING NOTES PATIENT IN BED , ALERT AND ORIENTED X1, SPEECH NOTED CLEAR BUT SLOW, ABLE TO MAKE SIMPLE NEEDS KNOWN. RESPIRATIONS EVEN AND UNLABORED WITH EQUAL RISE AND FALL OF CHEST, APPEARS TO BE COMFORTABLE AND FREE OF PAIN, DENIES PAIN AT THIS TIME, HERNANDEZ CATHETER INTACT AND DRAINING, URINE YELLOW NOTED WITH LEAKING, HAS HX OF F/C LEAKING , MD AWARE. F/C IN PROPER LOCATION AND PROPERLY SECURED.PATIENT REPOSITIONED TO OFFLOAD AFFECTED SACRAL AREA, MEPILEX INTACT NOTED PURPLE IN COLOR WOUND CARE CONSULT FOR REASSESSMENT IN PLACE, BOTH HEELS OFFLOADED FOR SKIN MANAGEMENT AND PREVENTION, HEELS INTACT, ASPIRATIONS AND BLEEDING PRECAUTIONS RENDERED. PETRA MIDLINE IN PLACE, INTACT AND PATENT , NO REDNESS NO INFILTRATION PRESENT, IVF D5W RUNNING ORDERED, CALL LIGHT KEPT WITHIN REACH, SAFETY PRECAUTIONS IN PLACE, LOW BED AND LOCKED, BED ALARM IN PLACE, ALL NEEDS ATTENDED AT THIS TIME, WILL CONTINUE TO MONITOR AND ENDORSE TO NEXT SHIFT, NO CHANGE THROUGHOUT SHIFT.
[2018-12-04 07:34] LABS: BASOPHILS % (AUTO) 0.2 % (0.0-2.0); EOSINOPHILS % (AUTO) 0.5 % (0.0-6.0); HEMATOCRIT 21 % (33-45); LYMPHOCYTES # (AUTO) 0.6 /CMM (0.8-4.8); LYMPHOCYTES % (AUTO) 19.1 % (20.0-44.0); MEAN CORPUSCULAR HGB CONC 33 g/dl (31.0-36.0); MEAN CORPUSCULAR VOLUME 103 fL (82-100); MONOCYTES # (AUTO) 0.2 /CMM (0.1-1.30); MONOCYTES % (AUTO) 5.7 % (2.0-12.0); NEUTROPHILS # (AUTO) 2.3 /CMM (1.8-8.9); NEUTROPHILS % (AUTO) 74.5 % (43.0-81.0); RED BLOOD CELL COUNT(AUTO) 2.04 MIL/uL (4.0-5.2); WHITE BLOOD COUNT (AUTO) 3.1 K/uL (4.3-11.0)
--- NOTE | 2018-12-04 07:44 | NUR ---
MS/RN OPENING NOTE PATIENT IN BED IN STABLE CONDITION. A/O X 1, NOTED WITH GARGLED SPEECH, LUX[place]BOURGISH SPEAKING AND UNDERSTANDING ONLY. NO SIGNS OF ACUTE DISTRESS. NO COMPLAIN OF PAIN OR DISCOMFORT. ALL NEEDS ATTENDED TO. CALL LIGHT WITHIN REACH. WILL CONTINUE TO MONITOR TO ENSURE SAFETY.
[2018-12-04 07:52] LABS: PLATELET COUNT (AUTO) 9 /CMM (150-450)
[2018-12-04 08:00] VITALS: BP 131/64
--- NOTE | 2018-12-04 08:00 | NUR ---
MS/RN RECEIVED CALL FROM LAB AND PER SHANTE PATIENT'S HGB 7.0, PLATELETS 9L, POTASSIUM 2.8. PAGED DR CORBIN TO NOTIFY.
[2018-12-04 08:07] LABS: BAND % (MANUAL) 1 % (0.0-5.0); NEUTROPHILS % (MANUAL) 84 (42-76)
[2018-12-04 08:08] LABS: LYMPHOCYTES % (MANUAL) 13 % (16-48); MONOCYTES % (MANUAL) 2 % (0-11.0)
[2018-12-04 08:10] LABS: D-DIMER 12.88 mg/L(FEU (0.17-0.50)
--- NOTE | 2018-12-04 08:31 | NUR ---
WOUND CARE CONSULT: PT SEEN FOR REASSESSMENT OF SACRAL AREA. SACRAL SCARRING INTACT. PT NOTED TO HAVE BRUISING TO RT BUTTOCK AT THIS TIME WELL INCONTINENCE ASSOCIATED SKIN DAMAGE TO GLUTEAL CREASE. PT INCONTINENT OF STOOL. PT HAS VERY LOW PLATELET LEVEL AND IS FOLLOWED BY HEM/ONC MD. POOR APPETITE NOTED. RECOMMEND DIETARY FOLLOWUP. PT ON NEIL ISOFLEX LOW AIRLOSS BED. ALL SKIN PROTECTION MEASURES IN PLACE. SKIN PROTECTION RECOMMENDATIONS DISCUSSED WITH NURSING STAFF. PT HAS MULTIPLE COMORBIDITIES INCLUDING MYELODYSPLASTIC DISORDER AND BLADDER CANCER. SKIN IS EXTREMELY FRAGILE WITH EDEMA NOTED. WILL SEE PRN. IN AGREEMENT WITH PLAN OF CARE. Addendum: 12/04/18 at 0835 by JIM DAY WNDNU Amended: Links added.
[2018-12-04 08:32] LABS: CALCIUM, SERUM 7.2 mg/dL (8.5-10.1); CARBON DIOXIDE 23 mmol/L (21-32); CHLORIDE 117 mmol/L (98-107); CREATININE 0.4 mg/dL (0.6-1.3); GLUCOSE 95 mg/dL (74-106); SODIUM SERUM 148 mmol/L (136-145); UREA NITROGEN, BLOOD 20 mg/dL (7-18)
[2018-12-04 08:44] LABS: POTASSIUM 2.8 mmol/L (3.5-5.1)
[2018-12-04] MEDS: CALCIUM CARB 250MG /VITAMIN D 1 UDTAB PO SCH ×2 (08:49→17:15)
[2018-12-04] MEDS: LEVOTHYROXINE SODIUM 25 MCG TABLET PO SCH (08:49)
[2018-12-04] MEDS: ENSURE ENLIVE 237 ML LIQUID (VANILLA) PO SCH ×3 (08:49→17:15)
[2018-12-04] MEDS: FOLIC ACID 1 MG TABLET PO SCH (08:49)
[2018-12-04] MEDS: PANTOPRAZOLE 40 MG TABLET.DR PO SCH (08:49)
[2018-12-04] MEDS ORDERED: POTASSIUM CHLORIDE 20 MEQ TAB.PRT.SR PO SCH (10:00)
[2018-12-04] MEDS: Potassium Chloride 40 MEQ in IV D5W 1,000 ML IV PRN (10:31)
[2018-12-04 12:12] VITALS: BP 131/64
[2018-12-04 16:00] VITALS: BP 117/52
--- NOTE | 2018-12-04 18:29 | NUR ---
MS/RN CLOSING NOTE PATIENT IN BED IN STABLE CONDITION. A/O X 1, GARGLED SPEECH, KOSOVAN SPEAKING AND UNDERSTANDING ONLY. NO SIGNS OF ACUTE DISTRESS. NO COMPLAIN OF PAIN OR DISCOMFORT AT THIS TIME. PLATELETS 9L, AND HGB 7.0L. PER DR CORBIN NO PLATELETS TRANSFUSION AT THIS TIME SINCE PATIENT NOT RESPONDING TO TRANSFUSION. BLOOD TRANSFUSION ONLY IF HGB < 7.[address] CORBIN NOTES. FAMILY AT BEDSIDE NOTIFIED. ALL NEEDS ATTENDED TO. CALL LIGHT WITHIN REACH. WILL ENDORSE TO NEXT SHIFT FOR CONTINUITY OF CARE.
[2018-12-04 20:00] VITALS: BP 114/46
--- NOTE | 2018-12-04 20:00 | NUR ---
TRISTAN RN OPENING NOTES RECEIVED PATIENT IN BED , ALERT AND ORIENTED X1,FAMILY MEMBERS AT THE BEDSIDE. RESPIRATIONS EVEN AND UNLABORED WITH EQUAL RISE AND FALL OF CHEST, APPEARS TO BE COMFORTABLE AND FREE OF PAIN, DENIES PAIN AT THIS TIME, HERNANDEZ CATHETER INTACT AND DRAINING URINE ON GRAVITY, PATIENT REPOSITIONED TO OFFLOAD AFFECTED SACRAL AREA, MEPILEX INTACT, BOTH HEELS OFFLOADED FOR SKIN MANAGEMENT AND PREVENTION, ASPIRATIONS PRECAUTIONS RENDERED. PETRA MIDLINE IN PLACE, INTACT AND PATENT , NO REDNESS NO INFILTRATION PRESENT, IVF RUNNING ORDERED,ORIENTED TO STAFF AND CALL LIGHT AND KEPT WITHIN REACH, SAFETY PRECAUTIONS IN PLACE, LOW BED AND LOCKED, BED ALARM IN PLACE, ALL NEEDS ATTENDED AT THIS TIME, WILL CONTINUE TO MONITOR AND ADDRESS NEEDS.
--- NOTE | 2018-12-04 20:45 | NUR ---
RN NOTES DR BAXTER IS AT THE PATIENT'S BEDSIDE AND TALKED TO FAMILY MEMBERS ABOUT PATIENT'S POOR PROGNOSIS. MD BAXTER HAS BEEN NOTIFIED ABOUT PATIENT'S PLATELET LEVEL AND NEW STAT ORDER OF PLATELET TRANSFUSION IS IN PLACE . PATIENT FAMILY MEMBERS AGREED TO PLATELET TRANSFUSION. WILL CONTINUE TO MONITOR PATIENT CLOSELY.
[2018-12-05] MEDS: Potassium Chloride 40 MEQ in IV D5W 1,000 ML IV PRN ×2 (01:45→15:53)
--- NOTE | 2018-12-05 02:35 | NUR ---
RN NOTES PLATELETS TRANSFUSION STARTED , V/S ARE WNL, RESPIRATION IS EVEN AND NON LABORED. WILL CONTINUE TO MONITOR PATIENT CLOSELY.
[2018-12-05 02:51] VITALS: BP 130/47
[2018-12-05 03:25] VITALS: BP 126/44
--- NOTE | 2018-12-05 03:35 | NUR ---
RN NOTES PLATELETS TRANSFUSION HAS BEEN COMPETED , V/S ARE WNL, RESPIRATION NON LABORED WITH RR OF18, NO FEVER DURING AND AFTER TRANSFUSION. WILL CONTINUE TO MONITOR PATIENT CLOSELY.
[2018-12-05 04:00] VITALS: BP_SYST 114; BP_SYST 126; BP_DIAS 49
[2018-12-05 06:44] LABS: BASOPHILS % (AUTO) 0.3 % (0.0-2.0); EOSINOPHILS % (AUTO) 0.7 % (0.0-6.0); LYMPHOCYTES # (AUTO) 0.6 /CMM (0.8-4.8); LYMPHOCYTES % (AUTO) 18.1 % (20.0-44.0); MEAN CORPUSCULAR HGB CONC 34 g/dl (31.0-36.0); MEAN CORPUSCULAR VOLUME 103 fL (82-100); MONOCYTES # (AUTO) 0.2 /CMM (0.1-1.30); MONOCYTES % (AUTO) 5.6 % (2.0-12.0); NEUTROPHILS # (AUTO) 2.7 /CMM (1.8-8.9); NEUTROPHILS % (AUTO) 75.3 % (43.0-81.0); PLATELET COUNT (AUTO) 67 /CMM (150-450); WHITE BLOOD COUNT (AUTO) 3.5 K/uL (4.3-11.0)
[2018-12-05 06:47] LABS: CALCIUM, SERUM 7.4 mg/dL (8.5-10.1); CARBON DIOXIDE 25 mmol/L (21-32); CHLORIDE 112 mmol/L (98-107); CREATININE 0.4 mg/dL (0.6-1.3); GLUCOSE 99 mg/dL (74-106); MAGNESIUM 1.8 mg/dL (1.8-2.4); PHOSPHORUS 2.3 mg/dL (2.5-4.9); POTASSIUM 3.5 mmol/L (3.5-5.1); SODIUM SERUM 143 mmol/L (136-145); UREA NITROGEN, BLOOD 16 mg/dL (7-18)
[2018-12-05 06:58] LABS: RED BLOOD CELL COUNT(AUTO) 1.93 MIL/uL (4.0-5.2)
[2018-12-05 07:00] LABS: HEMOGLOBIN 6.7 g/dL (11.5-14.8)
[2018-12-05 07:01] LABS: HEMATOCRIT 20 % (33-45)
--- NOTE | 2018-12-05 07:07 | NUR ---
RN NOTES GOT A CALL FROM LAB ERIC PATIENT'S HGB IS 6.7. ROLLOFF TRUCK DRIVER PEPPER AND ANALYTICAL SCIENCES DIRECTOR KALEN NOTIFIED, NO NEW ORDERS YET. WILL ENDORSE IT TO MORNING SHIFT RN FOR DIGITAL EXPERIENCE MANAGER.
--- NOTE | 2018-12-05 07:30 | NUR ---
MS RN OPENING NOTES RECEIVED REPORT FROM PM NURSE.PATIENT IN BED , ALERT AND ORIENTED X1.RESPIRATIONS EVEN AND UNLABORED WITH EQUAL RISE AND FALL OF CHEST, APPEARS TO BE COMFORTABLE AND FREE OF PAIN, DENIES PAIN AT THIS TIME, HERNANDEZ CATHETER INTACT AND DRAINING URINE ON GRAVITY, PATIENT REPOSITIONED TO OFFLOAD AFFECTED SACRAL AREA, MEPILEX INTACT, BOTH HEELS OFFLOADED FOR SKIN MANAGEMENT AND PREVENTION, ASPIRATIONS PRECAUTIONS RENDERED. PETRA MIDLINE IN PLACE, INTACT AND PATENT , NO REDNESS NO INFILTRATION PRESENT, IVF RUNNING ORDERED,ORIENTED TO STAFF AND CALL LIGHT AND KEPT WITHIN REACH, SAFETY PRECAUTIONS IN PLACE, LOW BED AND LOCKED, BED ALARM IN PLACE, ALL NEEDS ATTENDED AT THIS TIME, WILL CONTINUE TO MONITOR .
[2018-12-05 07:58] LABS: LYMPHOCYTES % (MANUAL) 19 % (16-48); MONOCYTES % (MANUAL) 3 % (0-11.0); NEUTROPHILS % (MANUAL) 78 (42-76)
[2018-12-05 08:00] VITALS: BP 117/60
[2018-12-05] MEDS: ENSURE ENLIVE 237 ML LIQUID (VANILLA) PO SCH ×3 (09:17→17:00)
[2018-12-05] MEDS: LEVOTHYROXINE SODIUM 25 MCG TABLET PO SCH (09:18)
[2018-12-05] MEDS: PANTOPRAZOLE 40 MG TABLET.DR PO SCH (09:18)
[2018-12-05] MEDS: FOLIC ACID 1 MG TABLET PO SCH (09:18)
[2018-12-05] MEDS: CALCIUM CARB 250MG /VITAMIN D 1 UDTAB PO SCH ×2 (09:18→16:35)
--- NOTE | 2018-12-05 10:30 | NUR ---
MS RN NOTE RELAYED RESULT OF H/H TO .HOSPICE EVAL TODAY.
[2018-12-05] MEDS ORDERED: K PHOS NEUTRAL 250 MG TABLET PO ONE (12:00)
--- NOTE | 2018-12-05 12:48 | NUR ---
MS RN NOTE SEEN BY .UPDATED ABOUT PATIENT CONDITION.INFORMED ABOUT POOR PO INTAKE.GOT NEW ORDER FOR IVF.TOLD THAT VAN HELPER WILL TAKE CARE OF HOSPICE EVAL.VAN HELPER MADE AWARE BY CHARGE NURSE.WILL CONTINUE TO MONITOR.
[2018-12-05] MEDS ORDERED: IV D5/0.45 NACL 1,000 ML IV PRN (13:00)
[2018-12-05 16:00] VITALS: BP 134/71
[2018-12-05] MEDS ORDERED: ALENDRONATE 70 MG TABLET PO SCH (18:30)
--- NOTE | 2018-12-05 18:40 | NUR ---
MS RN CLOSING NOTES PATIENT IN BED , ALERT AND ORIENTED X1.FAMILY AT BEDSIDE.INSTRUMENTATION TECH TALKED TO THE FAMILY REGARDING HOSPICE.RESPIRATIONS EVEN AND UNLABORED WITH EQUAL RISE AND FALL OF CHEST, APPEARS TO BE COMFORTABLE AND FREE OF PAIN, DENIES PAIN AT THIS TIME, HERNANDEZ CATHETER INTACT AND DRAINING URINE ON GRAVITY.BOTH HEELS OFFLOADED FOR SKIN MANAGEMENT AND PREVENTION, ASPIRATIONS PRECAUTIONS RENDERED. PETRA MIDLINE IN PLACE, INTACT AND PATENT , NO REDNESS NO INFILTRATION PRESENT, IVF RUNNING ORDERED,ORIENTED TO STAFF AND CALL LIGHT AND KEPT WITHIN REACH, SAFETY PRECAUTIONS IN PLACE, LOW BED AND LOCKED, BED ALARM IN PLACE, ALL NEEDS ATTENDED AT THIS TIME, WILL ENDORSE TO PM NURSE FOR SOL.
[2018-12-05 20:00] VITALS: BP 132/60
--- NOTE | 2018-12-05 20:00 | NUR ---
TRISTAN RN OPENING NOTES RECEIVED REPORT'S REPORT FROM AM NURSE.PATIENT IN BED , ALERT AND ORIENTED X1.FAMILY MEMBER AT THE BEDSIDE,PATIENT'S RESPIRATIONS EVEN AND UNLABORED WITH EQUAL RISE AND FALL OF CHEST, APPEARS TO BE COMFORTABLE AND FREE OF PAIN, HERNANDEZ CATHETER INTACT AND DRAINING DARK YELLOW URINE ON GRAVITY, PATIENT REPOSITIONED AND OFFLOAD AFFECTED SACRAL AREA, MEPILEX INTACT, BOTH HEELS OFFLOADED FOR SKIN MANAGEMENT AND PREVENTION, ASPIRATIONS PRECAUTIONS RENDERED. PETRA MIDLINE IN PLACE, INTACT AND PATENT , NO REDNESS NO INFILTRATION PRESENT, IVF RUNNING ORDERED,ORIENTED TO STAFF AND CALL LIGHT AND KEPT WITHIN REACH, SAFETY PRECAUTIONS IN PLACE, LOW BED AND LOCKED, BED ALARM IN PLACE, ALL NEEDS ATTENDED AT THIS TIME, WILL CONTINUE TO MONITOR .
[2018-12-06 04:00] VITALS: BP 110/51
--- NOTE | 2018-12-06 07:00 | NUR ---
MS RN OPENING NOTES RECEIVED REPORT FROM PM NURSE.PATIENT IN BED , ALERT AND ORIENTED X1.RESPIRATIONS EVEN AND UNLABORED WITH EQUAL RISE AND FALL OF CHEST, APPEARS TO BE COMFORTABLE AND FREE OF PAIN, DENIES PAIN AT THIS TIME, HERNANDEZ CATHETER INTACT AND DRAINING URINE ON GRAVITY, PATIENT REPOSITIONED TO OFFLOAD AFFECTED SACRAL AREA, MEPILEX INTACT, BOTH HEELS OFFLOADED FOR SKIN MANAGEMENT AND PREVENTION, ASPIRATIONS PRECAUTIONS RENDERED. PETRA MIDLINE IN PLACE, INTACT AND PATENT , NO REDNESS NO INFILTRATION PRESENT, IVF RUNNING ORDERED, CALL LIGHT AND KEPT WITHIN REACH, SAFETY PRECAUTIONS IN PLACE, LOW BED AND LOCKED, BED ALARM IN PLACE, ALL NEEDS ATTENDED AT THIS TIME, WILL CONTINUE TO MONITOR .
[2018-12-06] MEDS: LEVOTHYROXINE SODIUM 25 MCG TABLET PO SCH ×2 (07:30→09:22)
[2018-12-06] MEDS: CALCIUM CARB 250MG /VITAMIN D 1 UDTAB PO SCH ×2 (09:00→09:22)
[2018-12-06] MEDS: ENSURE ENLIVE 237 ML LIQUID (VANILLA) PO SCH ×3 (09:00→12:48)
[2018-12-06] MEDS: PANTOPRAZOLE 40 MG TABLET.DR PO SCH ×2 (09:00→09:22)
[2018-12-06] MEDS: FOLIC ACID 1 MG TABLET PO SCH ×2 (09:00→09:22)
--- NOTE | 2018-12-06 09:00 | NUR ---
MS RN NOTES PT REFUSED PO MEDS. INFORMED DAUGHTER, OMAYRA. WILL NOTIFY .
[2018-12-06] MEDS: Potassium Chloride 40 MEQ in IV D5W 1,000 ML IV PRN (12:48)
[2018-12-06 16:00] VITALS: BP 125/61
--- NOTE | 2018-12-06 17:00 | NUR ---
MS RN NOTES PER CHARGE NURSE, KAI AND CIRCULATION TENDER, OK TO LEAVE MIDLINE IN PLACE. PT IS EDEMATOUS AND WILL BE RECEIVING HOSPICE CARE AT HOME.
--- NOTE | 2018-12-06 17:58 | NUR ---
MS RN CLOSING NOTES PT LEFT WITH AMBULANCE CREW. DISCHARGE INSTRUCTIONS GIVEN. IV REMOVED ON FOOT. MIDLINE LEFT IN PLACE. BELONGINGS WITH PATIENT. ALL NEEDS ATTENDED TO.
== END 2018-12-06 17:53 | disposition hospice, home (50) | DRG 469 ==
LOC: EDBD 22:26 → TELE1 22:26 → ICU 11-29 17:47 → TELE-TD 11-30 17:32 → MEDSG1 12-01 08:00
PROVIDERS: ADMIT Student in an Organized Health Care Education/Training Program; ATTEND Student in an Organized Health Care Education/Training Program
PROC: 05H533Z Insertion of Infusion Device into Right Subclavian Vein, Percutaneous Approach (ICD-10-PCS; principal; 2018-11-29)
PROC: B546ZZA Ultrasonography of Right Subclavian Vein, Guidance (ICD-10-PCS; principal; 2018-11-29)
PROC: 30233R1 Transfusion of Nonautologous Platelets into Peripheral Vein, Percutaneous Approach (ICD-10-PCS; principal; 2018-11-29)
PROC: 30233N1 Transfusion of Nonautologous Red Blood Cells into Peripheral Vein, Percutaneous Approach (ICD-10-PCS; principal; 2018-11-29)
DX: N17.0 Acute kidney failure with tubular necrosis (principal); I21.A1 Myocardial infarction type 2; G93.41 Metabolic encephalopathy; E87.0 Hyperosmolality and hypernatremia; D61.818 Other pancytopenia; E87.2 Acidosis; I48.91 Unspecified atrial fibrillation; D68.9 Coagulation defect, unspecified; E86.0 Dehydration; D46.9 Myelodysplastic syndrome, unspecified; D53.9 Nutritional anemia, unspecified; E03.9 Hypothyroidism, unspecified; E86.1 Hypovolemia; E87.6 Hypokalemia; N39.0 Urinary tract infection, site not specified; I10 Essential (primary) hypertension; F03.90 Unspecified dementia, unspecified severity, without behavioral disturbance, psychotic disturbance, mood disturbance, and anxiety; Z95.0 Presence of cardiac pacemaker; Z92.21 Personal history of antineoplastic chemotherapy; Z85.51 Personal history of malignant neoplasm of bladder; Z90.49 Acquired absence of other specified parts of digestive tract; Z87.440 Personal history of urinary (tract) infections; M81.0 Age-related osteoporosis without current pathological fracture; Z86.61 Personal history of infections of the central nervous system; Z88.0 Allergy status to penicillin; Z79.899 Other long term (current) drug therapy; Z66 Do not resuscitate; K76.0 Fatty (change of) liver, not elsewhere classified; Z51.5 Encounter for palliative care
CPT/HCPCS: 36415; 36569; 71045-TC; 76705-TC; 80048-TC; 80053-TC; 80061-TC; 80074; 80076-TC; 81000-TC; 82272-TC; 82728-TC; 82784; 83010; 83540-TC; 83605-TC; 83615-TC; 83735-TC; 83935-TC; 84100-TC; 84155; 84165; 84300-TC; 84439-TC; 84443-TC; 84484-TC; 85025-TC; 85045-TC; 85396; 86334; 86850-TC; 86880-TC; 86921-TC; 87040-TC; 87081-TC; 87086-TC; 92611-TC; 93307-TC; A6402; C9113; G0378; J0696; J1160; J3430; J3480; J3490; J7030; J7040; J7050; J7060; J7070; P9016-BL; P9034-BL